=== PATIENT | female | born 1955 | race Caucasian/White ===

== ENCOUNTER 2018-05-07 17:15 | Outpatient (CLI) | payer MEDICARE ==
[2018-05-07 17:34] LABS: MEAN CORPUSCULAR HEMOGLOBIN 30.3 pg (28.0-34.0)
[2018-05-07 17:35] LABS: BASOPHILS % 0.5 (0.0-1.5); EOSINOPHILS % 1.4 % (0.0-6.8); MONOCYTES % 6.2 % (0.0-11.0); NEUTROPHILS # 8.3 # k/uL (1.4-7.7)
== END 2018-05-08 12:14 ==
LOC: LAB 17:15
PROVIDERS: ATTEND Internal Medicine Gastroenterology
DX: R19.7 Diarrhea, unspecified (principal)
CPT/HCPCS: 36415; 85025; 87045; 87046; 87177; 87209; 87427; 87493; 89055